=== PATIENT | male | born 1990 | race Asian ===

== ENCOUNTER 2020-05-28 08:49 | Inpatient (IN) | payer MEDICAID ==
[~2020-05-28] VITALS: Ht 171.4 cm; Wt 52.3 kg
[2020-05-28] MEDS ORDERED: INSU100V SQ (09:03)
[2020-05-28] MEDS ORDERED: SODIUM CHLORIDE 0.9% 1,000 ML IV ONE (09:15)
[2020-05-28] MEDS ORDERED: INSULIN REGULAR, HUMAN 100 UNITS/ML IVP ONE (09:15)
[2020-05-28 09:34] LABS: COVID AG,FIA SOURCE NASOPHARYNGEAL
[2020-05-28 09:53] LABS: BASOPHILS % (AUTO) 0.6 % (0.0-2.0); EOSINOPHILS % (AUTO) 0 % (1.0-6.0); HEMATOCRIT 33.4 % (41-53); HEMOGLOBIN 11.3 g/dL (13.5-17.5); LYMPHOCYTES # (AUTO) 0.5 K/uL (1.0-4.8); LYMPHOCYTES % (AUTO) 7.9 % (22.0-44.0); MEAN CORPUSCULAR HEMOGLOBIN 33.9 pg (26.0-34.0); MEAN CORPUSCULAR HGB CONC 33.9 G/dL (31.0-37.0); MEAN CORPUSCULAR VOLUME 100 fL (80-100); MONOCYTES # (AUTO) 0.2 K/uL (0.1-1.0); MONOCYTES % (AUTO) 2.6 % (2.0-9.0); NEUTROPHILS # (AUTO) 6.2 K/uL (1.8-7.7); PLATELET COUNT (AUTO) 185 K/uL (150-450); RED BLOOD CELL COUNT(AUTO) 3.34 MIL/uL (4.50-5.90); RED CELL DISTRIBUTION WIDTH 12.1 % (11.5-14.5)
[2020-05-28 10:06] LABS: NEUTROPHILS % (AUTO) 88.9 % (40.0-70.0)
[2020-05-28 10:12] LABS: ALANINE AMINOTRANSFERASE 8 U/L (12-78); ALKALINE PHOSPHATASE 89 U/L (46-116); ANION GAP 28 mmol/L (8-16); ASPARTATE AMINOTRANSFERASE 45 U/L (15-37); BILIRUBIN,TOTAL 4.3 mg/dL (0.1-1.0); CALCIUM, TOTAL 8.1 mg/dL (8.8-10.5); CHLORIDE 92 mmol/L (98-107); GLOMERULAR FILTR. RATE CALC 50 mL/min (>60); POTASSIUM 3.7 mmol/L (3.5-5.1); SODIUM SERUM 128 mmol/L (136-145); TOTAL PROTEIN, SERUM 7.5 g/dL (6.4-8.2); UREA NITROGEN, BLOOD 22 mg/dL (7-18)
[2020-05-28 10:19] LABS: CARBON DIOXIDE 8 mmol/L (22-29); GLUCOSE,RANDOM 614 mg/dL (70-110)
[2020-05-28 10:22] LABS: ACETONE,BLOOD 1:32 (NEGATIVE)
[2020-05-28] MEDS ORDERED: SODIUM BICARBONATE 50 MEQ in SODIUM CHLORIDE 0.9% 1,000 ML IV ONE (10:30)
[2020-05-28] MEDS ORDERED: INSULIN REGULAR, HUMAN 100 UNITS in SODIUM CHLORIDE 0.9% 99 ML IV SCH ×2 (10:30)
[2020-05-28] MEDS ORDERED: POTASSIUM CHLORIDE 40 MEQ in SODIUM CHLORIDE 0.45% 1,000 ML IV PRN (10:45)
[2020-05-28] MEDS ORDERED: ACETAMINOPHEN 325 MG TABLET PO PRN (10:45)
[2020-05-28] MEDS ORDERED: POTASSIUM CHL 20 MEQ/0.45% NS 1,000 ML IV PRN (10:45)
[2020-05-28] MEDS ORDERED: INSULIN REGULAR, HUMAN 100 UNITS/ML IVP PRN (10:45)
[2020-05-28] MEDS ORDERED: SODIUM CHLORIDE 0.45% 1,000 ML IV PRN (10:45)
[2020-05-28] MEDS ORDERED: SODIUM CHLORIDE 0.9% 1,000 ML IV SCH (10:45)
[2020-05-28] MEDS ORDERED: ONDANSETRON HCL 4 MG/2 ML VIAL IVP PRN (10:45)
[2020-05-28] MEDS: INSULIN REGULAR, HUMAN 100 UNITS in SODIUM CHLORIDE 0.9% 99 ML IV PRN ×2 (11:18)
[2020-05-28 11:21] LABS: APPEARANCE,URINE CLEAR (CLEAR); GLUCOSE, URINE (UA) >=1000 mg/dL (NEGATIVE); KETONES,URINE >=80 mg/dL (NEGATIVE); LEUKOCYTE ESTERASE ,URINE SMALL (NEGATIVE); NITRATE,URINE NEGATIVE (NEGATIVE); OCCULT BLOOD,URINE LARGE (NEGATIVE); PH,URINE 5.5 (5.0-8.0); PROTEIN,URINE SEE CONFIRM (NEGATIVE)
[2020-05-28 11:22] LABS: BILIRUBIN,URINE PRELIM. POSITIVE (NEGATIVE)
[2020-05-28 11:36] LABS: SULFOSALICYLIC ACID,URINE 3+ (Negative)
[2020-05-28 11:41] LABS: BACTERIA,URINE None Seen /HPF (None Seen); RBC,URINE 0-2 /HPF (0-2); SQUAMOUS EPITHELIAL CELL,UR Few /LPF (None Seen); WBC,URINE 0-2 /HPF (0-5)
[2020-05-28 13:05] LABS: CREATINE KINASE, TOTAL ONLY 58 U/L (39-308); PHOSPHORUS 2.8 mg/dL (2.5-4.9)
[2020-05-28 15:43] LABS: GLUCOSE,POINT OF CARE 549 MG/DL (70-110)
[2020-05-28 15:43] LABS: GLUCOSE,POINT OF CARE 207 MG/DL (70-110)
[2020-05-28 15:43] LABS: GLUCOSE,POINT OF CARE 235 MG/DL (70-110)
[2020-05-28 15:43] LABS: GLUCOSE,POINT OF CARE 435 MG/DL (70-110)
[2020-05-28 15:43] LABS: GLUCOSE,POINT OF CARE 296 MG/DL (70-110)
[2020-05-28 15:43] LABS: GLUCOSE,POINT OF CARE 362 MG/DL (70-110)
[2020-05-28] MEDS ORDERED: MAGNESIUM SULFATE 2 GM/WATER 50 ML IV PRN (16:30)
[2020-05-28] MEDS ORDERED: MAGNESIUM SULFATE 4 GM/WATER 100 ML IV PRN (16:30)
[2020-05-28 17:11] LABS: GLUCOSE,POINT OF CARE 173 MG/DL (70-110)
[2020-05-28 17:33] LABS: ANION GAP 15 mmol/L (8-16); CALCIUM, TOTAL 7.8 mg/dL (8.8-10.5); CARBON DIOXIDE 16 mmol/L (22-29); CHLORIDE 103 mmol/L (98-107); CREATININE 1.17 mg/dL (0.60-1.30); GLOMERULAR FILTR. RATE CALC > 60 mL/min (>60); GLUCOSE,RANDOM 186 mg/dL (70-110); POTASSIUM 3.1 mmol/L (3.5-5.1); SODIUM SERUM 134 mmol/L (136-145); UREA NITROGEN, BLOOD 19 mg/dL (7-18)
[2020-05-28 17:46] LABS: ALBUMIN 3.1 g/dL (3.4-5.0)
[2020-05-28 18:38] LABS: GLUCOSE,POINT OF CARE 150 MG/DL (70-110)
[2020-05-28] MEDS ORDERED: POTASSIUM CHLORIDE 20 MEQ ER TABLET PO PRN (18:45)
[2020-05-28] MEDS ORDERED: POTASSIUM CHL 10 MEQ/WATER 50 ML IV PRN (18:45)
[2020-05-28 19:32] LABS: GLUCOSE,POINT OF CARE 130 MG/DL (70-110)
[2020-05-28] MEDS: DEXTROSE 5%-0.45% SODIUM CHL 1,000 ML IV PRN (20:06)
[2020-05-28 20:16] LABS: GLUCOSE,POINT OF CARE 108 MG/DL (70-110)
[2020-05-28 21:15] LABS: GLUCOSE,POINT OF CARE 148 MG/DL (70-110)
[2020-05-28 21:16] LABS: ANION GAP 13 mmol/L (8-16); CARBON DIOXIDE 18 mmol/L (22-29); CHLORIDE 103 mmol/L (98-107); CREATININE 1.09 mg/dL (0.60-1.30); GLOMERULAR FILTR. RATE CALC > 60 mL/min (>60); GLUCOSE,RANDOM 148 mg/dL (70-110); POTASSIUM 3.2 mmol/L (3.5-5.1); SODIUM SERUM 134 mmol/L (136-145); UREA NITROGEN, BLOOD 17 mg/dL (7-18)
[2020-05-28 22:16] LABS: GLUCOSE,POINT OF CARE 164 MG/DL (70-110)
[2020-05-28 22:59] LABS: GLUCOSE,POINT OF CARE 187 MG/DL (70-110)
[2020-05-29] MEDS: INSULIN REGULAR, HUMAN 100 UNITS in SODIUM CHLORIDE 0.9% 99 ML IV PRN ×2 (00:09)
[2020-05-29 00:20] LABS: GLUCOSE,POINT OF CARE 199 MG/DL (70-110)
[2020-05-29] MEDS: DEXTROSE 5%-0.45% SODIUM CHL 1,000 ML IV PRN (01:31)
[2020-05-29 01:54] LABS: GLUCOSE,POINT OF CARE 193 MG/DL (70-110)
[2020-05-29 02:28] LABS: ANION GAP 10 mmol/L (8-16); CALCIUM, TOTAL 7.5 mg/dL (8.8-10.5); CARBON DIOXIDE 21 mmol/L (22-29); CHLORIDE 102 mmol/L (98-107); CREATININE 0.96 mg/dL (0.60-1.30); GLOMERULAR FILTR. RATE CALC > 60 mL/min (>60); GLUCOSE,RANDOM 177 mg/dL (70-110); POTASSIUM 3.4 mmol/L (3.5-5.1); SODIUM SERUM 133 mmol/L (136-145); UREA NITROGEN, BLOOD 12 mg/dL (7-18)
[2020-05-29 02:35] LABS: GLUCOSE,POINT OF CARE 168 MG/DL (70-110)
[2020-05-29 03:31] LABS: ABG A-A DIFF O2 6.6 mmHg (10-20.0); ABG CARBOXYHEMOGLOBIN 1.9 % (0.0-1.5); ABG HCO3 18.6 mmol/L (22.0-26.0); ABG METHEMOGLOBIN 0.6 % (0.0-1.5); ABG OXYGEN CONTENT 11.1 mL/dL (15.0-23.0); ABG OXYGEN SATURATION 97.7 % (95.0-98.0); ABG OXYHEMOGLOBIN 95.3 % (94.0-100.0); ABG PCO2 28 mmHg (35-45); ABG PH 7.398 (7.350-7.450); ABG TOTAL HEMOGLOBIN 8.1 G/dL (12.0-18.0); PO2, ARTERIAL BG 110.1 mmHg (92.0-100.0); SOURCE, BLOOD GAS ARTERIAL
[2020-05-29 03:32] LABS: O2 DEVICE,BLOOD GAS ROOM AIR (ROOM AIR); SITE, BLOOD GAS LFT RADIAL
[2020-05-29 03:41] LABS: GLUCOSE,POINT OF CARE 122 MG/DL (70-110)
[2020-05-29 04:50] LABS: GLUCOSE,POINT OF CARE 88 MG/DL (70-110)
[2020-05-29 05:44] LABS: GLUCOSE,POINT OF CARE 75 MG/DL (70-110)
[2020-05-29 06:30] LABS: ALANINE AMINOTRANSFERASE 7 U/L (12-78); ALBUMIN 2.7 g/dL (3.4-5.0); ALKALINE PHOSPHATASE 58 U/L (46-116); ANION GAP 11 mmol/L (8-16); ASPARTATE AMINOTRANSFERASE 26 U/L (15-37); BILIRUBIN,TOTAL 2.6 mg/dL (0.1-1.0); CALCIUM, TOTAL 7.3 mg/dL (8.8-10.5); CARBON DIOXIDE 20 mmol/L (22-29); CHLORIDE 103 mmol/L (98-107); CREATININE 0.88 mg/dL (0.60-1.30); GLOMERULAR FILTR. RATE CALC > 60 mL/min (>60); GLUCOSE,RANDOM 71 mg/dL (70-110); SODIUM SERUM 134 mmol/L (136-145); TOTAL PROTEIN, SERUM 5.3 g/dL (6.4-8.2); UREA NITROGEN, BLOOD 9 mg/dL (7-18)
[2020-05-29] MEDS: DEXTROSE 50%-WATER 25 GM/50 ML SYRINGE IVP PRN ×2 (06:30→06:44)
[2020-05-29 06:35] LABS: GLUCOSE,POINT OF CARE 66 MG/DL (70-110)
[2020-05-29 07:31] LABS: POTASSIUM 2.9 mmol/L (3.5-5.1)
[2020-05-29 07:45] LABS: PHOSPHORUS < 0.5 mg/dL (2.5-4.9)
[2020-05-29] MEDS ORDERED: INSULIN REGULAR, HUMAN 100 UNITS/ML SQ ONE (07:45)
[2020-05-29] MEDS ORDERED: INSULIN GLARGINE,HUM.REC.ANLOG 100 UNITS/ML SQ ONE (07:45)
[2020-05-29] MEDS ORDERED: POTASSIUM CHLORIDE 20 MEQ ER TABLET PO ONE (07:45)
[2020-05-29] MEDS ORDERED: POTASSIUM PHOS,M-BASIC-D-BASIC 30 MMOL in DEXTROSE 5%-WATER 250 ML IV ONE (07:45)
[2020-05-29 09:08] LABS: GLUCOSE,POINT OF CARE 166 MG/DL (70-110)
[2020-05-29 09:08] LABS: GLUCOSE,POINT OF CARE 174 MG/DL (70-110)
[2020-05-29 10:08] LABS: GLUCOSE,POINT OF CARE 174 MG/DL (70-110)
[2020-05-29 10:26] VITALS: BP 103/61
[2020-05-29 11:04] VITALS: BP 108/58
[2020-05-29 11:54] LABS: GLUCOSE,POINT OF CARE 145 MG/DL (70-110)
[2020-05-29 11:54] LABS: GLUCOSE,POINT OF CARE 133 MG/DL (70-110)
[2020-05-29 12:15] LABS: ANION GAP 7 mmol/L (8-16); CALCIUM, TOTAL 7.3 mg/dL (8.8-10.5); CARBON DIOXIDE 23 mmol/L (22-29); CHLORIDE 104 mmol/L (98-107); CREATININE 0.93 mg/dL (0.60-1.30); GLOMERULAR FILTR. RATE CALC > 60 mL/min (>60); GLUCOSE,RANDOM 123 mg/dL (70-110); POTASSIUM 3.7 mmol/L (3.5-5.1); SODIUM SERUM 134 mmol/L (136-145); UREA NITROGEN, BLOOD 8 mg/dL (7-18)
[2020-05-29 13:27] VITALS: BP 103/55
[2020-05-29 13:30] LABS: GLUCOSE,POINT OF CARE 226 MG/DL (70-110)
[2020-05-29 16:00] VITALS: BP 105/60
[2020-05-29] MEDS ORDERED: INFLUENZA VIRUS VACCINE QVS 2020-21 (6MO+)/PF 60 MCG/0.5 ML SYRINGE IM ONE (16:15)
[2020-05-29 18:12] LABS: ANION GAP 8 mmol/L (8-16); CALCIUM, TOTAL 7.6 mg/dL (8.8-10.5); CARBON DIOXIDE 24 mmol/L (22-29); CHLORIDE 102 mmol/L (98-107); CREATININE 0.98 mg/dL (0.60-1.30); GLOMERULAR FILTR. RATE CALC > 60 mL/min (>60); GLUCOSE,RANDOM 220 mg/dL (70-110); POTASSIUM 3.8 mmol/L (3.5-5.1); SODIUM SERUM 134 mmol/L (136-145); UREA NITROGEN, BLOOD 8 mg/dL (7-18)
[2020-05-29] MEDS ORDERED: DEXTROSE 50%-WATER 25 GM/50 ML SYRINGE IVP PRN (19:15)
[2020-05-29 19:55] LABS: GLUCOMETER DEV NAME(LOC) 6N.2; GLUCOSE,POINT OF CARE 201 MG/DL (70-110)
[2020-05-29 20:23] VITALS: BP 104/57
[2020-05-29] MEDS: INSULIN LISPRO 100 UNITS/ML SQ PRN (21:28)
[2020-05-29 23:44] LABS: ANION GAP 8 mmol/L (8-16); CARBON DIOXIDE 24 mmol/L (22-29); CHLORIDE 101 mmol/L (98-107); CREATININE 0.86 mg/dL (0.60-1.30); GLOMERULAR FILTR. RATE CALC > 60 mL/min (>60); GLUCOSE,RANDOM 249 mg/dL (70-110); POTASSIUM 3.7 mmol/L (3.5-5.1); SODIUM SERUM 133 mmol/L (136-145); UREA NITROGEN, BLOOD 7 mg/dL (7-18)
[2020-05-29 23:45] LABS: CALCIUM, TOTAL 7.7 mg/dL (8.8-10.5)
[2020-05-29 23:51] VITALS: BP 102/54
[2020-05-30 00:56] LABS: GLUCOMETER DEV NAME(LOC) 6N.2; GLUCOSE,POINT OF CARE 195 MG/DL (70-110)
[2020-05-30 05:18] VITALS: BP 97/62
[2020-05-30] MEDS: INSULIN LISPRO 100 UNITS/ML SQ PRN ×4 (05:31→20:04)
[2020-05-30 06:10] LABS: GLUCOMETER DEV NAME(LOC) 6S.1; GLUCOSE,POINT OF CARE 284 MG/DL (70-110)
[2020-05-30 06:55] LABS: ANION GAP 5 mmol/L (8-16); CALCIUM, TOTAL 7.8 mg/dL (8.8-10.5); CARBON DIOXIDE 28 mmol/L (22-29); CHLORIDE 101 mmol/L (98-107); CREATININE 0.85 mg/dL (0.60-1.30); GLOMERULAR FILTR. RATE CALC > 60 mL/min (>60); GLUCOSE,RANDOM 277 mg/dL (70-110); POTASSIUM 3.6 mmol/L (3.5-5.1); SODIUM SERUM 134 mmol/L (136-145); UREA NITROGEN, BLOOD 6 mg/dL (7-18)
[2020-05-30 08:02] VITALS: BP 102/57
[2020-05-30] MEDS: INSULIN GLARGINE,HUM.REC.ANLOG 100 UNITS/ML SQ SCH (08:56)
[2020-05-30 12:30] LABS: ANION GAP 9 mmol/L (8-16); CALCIUM, TOTAL 7.9 mg/dL (8.8-10.5); CARBON DIOXIDE 29 mmol/L (22-29); CHLORIDE 97 mmol/L (98-107); CREATININE 0.67 mg/dL (0.60-1.30); GLOMERULAR FILTR. RATE CALC > 60 mL/min (>60); GLUCOSE,RANDOM 268 mg/dL (70-110); POTASSIUM 3.5 mmol/L (3.5-5.1); SODIUM SERUM 135 mmol/L (136-145); UREA NITROGEN, BLOOD 6 mg/dL (7-18)
[2020-05-30] MEDS: MAGNESIUM OXIDE 400 MG TABLET PO PRN ×3 (14:20→19:57)
[2020-05-30] MEDS ORDERED: NAPH1PAC2 PO (14:52)
[2020-05-30] MEDS ORDERED: INSLAN SQ (14:52)
[2020-05-30 15:45] VITALS: BP 100/58
[2020-05-30 16:05] LABS: PHOSPHORUS 1.1 mg/dL (2.5-4.9)
[2020-05-30] MEDS: POTASSIUM PHOS,M-BASIC-D-BASIC 20 MMOL in DEXTROSE 5%-WATER 150 ML IV SCH ×2 (17:23→19:56)
[2020-05-30 19:48] LABS: GLUCOMETER DEV NAME(LOC) 6S.1; GLUCOSE,POINT OF CARE 256 MG/DL (70-110)
[2020-05-30 19:48] LABS: GLUCOMETER DEV NAME(LOC) 6S.1; GLUCOSE,POINT OF CARE 255 MG/DL (70-110)
[2020-05-30 21:11] VITALS: BP 94/40
[2020-05-30 22:06] LABS: GLUCOMETER DEV NAME(LOC) 6S.1; GLUCOSE,POINT OF CARE 266 MG/DL (70-110)
[2020-05-30 23:37] VITALS: BP 96/49
[2020-05-31 04:56] VITALS: BP 101/50
[2020-05-31] MEDS: INSULIN LISPRO 100 UNITS/ML SQ PRN ×3 (05:39→17:22)
[2020-05-31 08:04] LABS: PHOSPHORUS 1.6 mg/dL (2.5-4.9)
[2020-05-31] MEDS: INSULIN GLARGINE,HUM.REC.ANLOG 100 UNITS/ML SQ SCH (08:15)
[2020-05-31 08:41] VITALS: BP 102/56
[2020-05-31] MEDS ORDERED: MULTIVITAMINS WITH MINERALS, THERAPEUTIC TABLET PO SCH (09:00)
[2020-05-31] MEDS: MAGNESIUM OXIDE 400 MG TABLET PO PRN (09:40)
[2020-05-31] MEDS ORDERED: INSULIN GLARGINE,HUM.REC.ANLOG 100 UNITS/ML SQ ONE (11:45)
[2020-05-31] MEDS ORDERED: WATER IV ONE (12:30)
[2020-05-31] MEDS ORDERED: POTASSIUM PHOS M BASIC D BASIC IV ONE (12:30)
[2020-05-31] MEDS ORDERED: DEXTROSE 5% IV ONE (12:30)
[2020-05-31 15:29] VITALS: BP 104/55
[2020-05-31 16:22] LABS: GLUCOMETER DEV NAME(LOC) 6N.2; GLUCOSE,POINT OF CARE 240 MG/DL (70-110)
[2020-05-31 16:23] LABS: GLUCOMETER DEV NAME(LOC) 6N.2; GLUCOSE,POINT OF CARE 282 MG/DL (70-110)
[2020-05-31 19:20] LABS: GLUCOMETER DEV NAME(LOC) 6S.1; GLUCOSE,POINT OF CARE 297 MG/DL (70-110)
[2020-05-31 19:43] VITALS: BP 98/55
[2020-06-01] MEDS ORDERED: INSULIN GLARGINE,HUM.REC.ANLOG 100 UNITS/ML SQ SCH (09:00)
== END 2020-05-31 20:52 | disposition home or self-care (01) | DRG 137 ==
LOC: EMS 08:51 → ICUN 13:03 → 6N 05-29 13:58
PROVIDERS: ADMIT Hospitalist; ATTEND Hospitalist
PROC: 3E0234Z Introduction of Serum, Toxoid and Vaccine into Muscle, Percutaneous Approach (ICD-10-PCS; principal; 2020-05-29)
DX: U07.1 COVID-19 (principal); E10.10 Type 1 diabetes mellitus with ketoacidosis without coma; E80.6 Other disorders of bilirubin metabolism; E83.42 Hypomagnesemia; E87.6 Hypokalemia; E83.39 Other disorders of phosphorus metabolism; Z79.4 Long term (current) use of insulin; Z91.14 Patient's other noncompliance with medication regimen; Z23 Encounter for immunization; E44.0 Moderate protein-calorie malnutrition; E44.1 Mild protein-calorie malnutrition
CPT/HCPCS: 36600; 82805; 82948; 83735; 84100; 87426; 90686; 93005; 99291; G0378; J1815; J2405; J3475; J3480; J3490; J7030; J7050; J7060; 36415-L1; 36415-TC; 71045-TC; G0008